=== PATIENT | male | born 1985 | race African-American/Black ===

== ENCOUNTER 2017-09-25 14:13 | Inpatient (IN) | payer SELFPAY ==
[2017-09-25] MEDS ORDERED: ONDANSETRON PF 4 MG/2 ML VIAL. IV (15:00)
[2017-09-25] MEDS: IV NORMAL SALINE 500ML BAG 500 ML IV (15:45)
[2017-09-25 15:59] LABS: BASO % 0 % (0-3); EOS % 0 % (0-3); HEMATOCRIT 39.8 % (39.0-53.0); HEMOGLOBIN 13.5 g/dL (13.0-17.5); LYMPH # 0.7 x10^3/uL (1.0-4.8); LYMPH % 6 % (24-48); MEAN CORPUSCULAR HEMOGLOBIN 33 pg (25-35); MEAN CORPUSCULAR HGB CONC 34 g/dL (31-37); MEAN CORPUSCULAR VOLUME 99 fL (79-100); MONO # 0.5 x10^3/uL (0.0-1.1); MONO % 4 % (0-9); NEUT # 9.8 x10^3uL (1.8-7.7); NEUT % 89 % (31-73); PLATELET COUNT 300 x10^3/uL (140-400); RED BLOOD COUNT 4.04 x10^6/uL (4.30-5.70); WHITE BLOOD COUNT 11.1 x10^3/uL (4.0-11.0)
[2017-09-25 16:04] LABS: ADD MAN DIFF? YES
[2017-09-25 16:11] LABS: ANION GAP 10 (6-14); BLOOD UREA NITROGEN 16 mg/dL (8-26); BUN/CREATININE RATIO 13 (6-20); CALCIUM 8.9 mg/dL (8.5-10.1); CARBON DIOXIDE 28 mmol/L (21-32); CHLORIDE 106 mmol/L (98-107); CREATININE 1.2 mg/dL (0.7-1.3); GFR 85.4; GLUCOSE 118 mg/dL (70-99); POTASSIUM 3.4 mmol/L (3.5-5.1); SODIUM 144 mmol/L (136-145)
[2017-09-25] MEDS: PROMETHAZINE IM 25 MG/ML VIAL IM (16:12)
[2017-09-25 16:17] LABS: ALBUMIN 4.2 g/dL (3.4-5.0); ALBUMIN/GLOBULIN RATIO 1.1 (1.0-1.7); ALK PHOS 66 U/L (46-116); ALT (SGPT) 77 U/L (16-63); AMYLASE 58 U/L (25-115); AST (SGOT) 31 U/L (15-37); LIPASE 99 U/L (73-393); TOTAL BILIRUBIN 0.4 mg/dL (0.2-1.0); TOTAL PROTEIN 7.9 g/dL (6.4-8.2)
[2017-09-25 17:09] LABS: % LYMPHS 11 % (24-48); % MONOS 3 % (0-10); % SEGS 86 % (35-66)
[2017-09-25 17:25] LABS: PLT ESTIMATE ADEQUATE (ADEQUATE)
[2017-09-25] MEDS: PANTOPRAZOLE IV PUSH 40 MG VIAL. IVP (18:12)
[2017-09-25] MEDS: IV NORMAL SALINE 1000ML BAG 1,000 ML IV (18:12)
[2017-09-26 06:31] LABS: ADD MAN DIFF? NO
[2017-09-26 06:38] LABS: BASO # 0.1 x10^3/uL (0.0-0.2); BASO % 1 % (0-3); EOS # 0.2 x10^3/uL (0.0-0.7); EOS % 1 % (0-3); HEMATOCRIT 39.2 % (39.0-53.0); HEMOGLOBIN 13.1 g/dL (13.0-17.5); LYMPH # 2.5 x10^3/uL (1.0-4.8); LYMPH % 23 % (24-48); MEAN CORPUSCULAR HEMOGLOBIN 33 pg (25-35); MEAN CORPUSCULAR HGB CONC 34 g/dL (31-37); MEAN CORPUSCULAR VOLUME 99 fL (79-100); MONO # 0.9 x10^3/uL (0.0-1.1); MONO % 8 % (0-9); NEUT # 7.3 x10^3uL (1.8-7.7); NEUT % 67 % (31-73); PLATELET COUNT 293 x10^3/uL (140-400); RED BLOOD COUNT 3.96 x10^6/uL (4.30-5.70); RED CELL DISTRIBUTION WIDTH 12.6 % (11.5-14.5)
[2017-09-26 06:48] LABS: ANION GAP 5 (6-14); BLOOD UREA NITROGEN 18 mg/dL (8-26); CALCIUM 8.1 mg/dL (8.5-10.1); CARBON DIOXIDE 30 mmol/L (21-32); CHLORIDE 109 mmol/L (98-107); CREATININE 1.2 mg/dL (0.7-1.3); GFR 85.4; GLUCOSE 95 mg/dL (70-99); POTASSIUM 3.7 mmol/L (3.5-5.1); SODIUM 144 mmol/L (136-145)
[2017-09-26] MEDS: PANTOPRAZOLE IV PUSH 40 MG VIAL. IVP (09:15)
[2017-09-26 10:15] LABS: BARBITURATES NEG (NEG); BENZODIAZEPINES NEG (NEG); CANNABINOIDS POS (NEG); COCAINE NEG (NEG); METHADONE NEG (NEG); OPIATES NEG (NEG); PHENCYCLIDINE NEG (NEG)
[2017-09-26 10:21] LABS: AMPHETAMINE/METHAMPHETAMINE NEG (NEG); ETHANOL, URINE NEG (NEG)
[2017-09-27] MEDS ORDERED: PANTOPRAZOLE 40 MG TABLET.DR. PO (07:30)
== END 2017-09-26 15:30 | disposition home or self-care (01) | DRG 392 ==
LOC: 5 SOUTH 14:13
DX: A08.4 Viral intestinal infection, unspecified (principal); J45.909 Unspecified asthma, uncomplicated; K21.9 Gastro-esophageal reflux disease without esophagitis; F12.90 Cannabis use, unspecified, uncomplicated
CPT/HCPCS: 36415; 74018; 80048; 80053; 80307; 82150; 83690; 85007; 85025; C9113; J2550; J7030

== ENCOUNTER 2018-08-29 12:14 | Emergency (ER) | payer OTHER ==
[~2018-08-29] VITALS: Ht 177.8 cm; Wt 106.6 kg
[~2018-08-29 12:14] MED LIST: PANT40GR PO; PROM25AM6 PO; PROM25TA10 PO; RANI150T2 PO
[2018-08-29] MEDS ORDERED: IV NORMAL SALINE 1000ML BAG 1,000 ML IV ONE ×2 (12:30→14:30)
[2018-08-29] MEDS ORDERED: ONDANSETRON PF 4 MG/2 ML VIAL. IV ONE ×2 (12:30→16:15)
[2018-08-29] MEDS ORDERED: DICYCLOMINE 20 MG/2 ML AMPUL. IM ONE (13:15)
[2018-08-29 13:17] LABS: BASO # 0.1 x10^3/uL (0.0-0.2); BASO % 1 % (0-3); EOS # 0.1 x10^3/uL (0.0-0.7); EOS % 1 % (0-3); HEMATOCRIT 43.3 % (39.0-53.0); HEMOGLOBIN 14.6 g/dL (13.0-17.5); LYMPH # 1.1 x10^3/uL (1.0-4.8); LYMPH % 9 % (24-48); MEAN CORPUSCULAR HEMOGLOBIN 33 pg (25-35); MEAN CORPUSCULAR HGB CONC 34 g/dL (31-37); MEAN CORPUSCULAR VOLUME 98 fL (79-100); MONO # 0.4 x10^3/uL (0.0-1.1); MONO % 3 % (0-9); NEUT # 10.7 x10^3uL (1.8-7.7); NEUT % 87 % (31-73); PLATELET COUNT 335 x10^3/uL (140-400); RED BLOOD COUNT 4.44 x10^6/uL (4.30-5.70); RED CELL DISTRIBUTION WIDTH 12.8 % (11.5-14.5); WHITE BLOOD COUNT 12.3 x10^3/uL (4.0-11.0)
[2018-08-29 13:28] LABS: CALCIUM 9.3 mg/dL (8.5-10.1); CREATININE 1.4 mg/dL (0.7-1.3); GFR 71.1; POTASSIUM 3.9 mmol/L (3.5-5.1)
[2018-08-29 13:34] LABS: ALBUMIN 4.3 g/dL (3.4-5.0); ALBUMIN/GLOBULIN RATIO 1.2 (1.0-1.7); MAGNESIUM 1.9 mg/dL (1.8-2.4); TOTAL BILIRUBIN 0.2 mg/dL (0.2-1.0)
[2018-08-29 14:24] LABS: % BANDS 3 % (0-9); % SEGS 85 % (35-66); PLT ESTIMATE ADEQUATE (ADEQUATE)
[2018-08-29 14:25] LABS: % LYMPHS 11 % (24-48); % MONOS 1 % (0-10)
--- NOTE | 2018-08-29 14:26 | PHYS DOC ---
Past Medical History Past Medical History: Asthma, GERD, IBS Past Surgical History: No Surgical History Alcohol Use: Rarely Drug Use: None Adult General Chief Complaint Chief Complaint: NAUSEA/VOMITING/DIARRHA HPI HPI Patient is a 32 year old [f__sex] who presents with [] Review of Systems Review of Systems Constitutional: Denies fever or chills [] Eyes: Denies change in visual acuity, redness, or eye pain [] HENT: Denies nasal congestion or sore throat [] Respiratory: Denies cough or shortness of breath [] Cardiovascular: No additional information not addressed in HPI [] GI: Denies abdominal pain, nausea, vomiting, bloody stools or diarrhea [] : Denies dysuria or hematuria [] Musculoskeletal: Denies back pain or joint pain [] Integument: Denies rash or skin lesions [] Neurologic: Denies headache, focal weakness or sensory changes [] Endocrine: Denies polyuria or polydipsia [] All other systems were reviewed and found to be within normal limits, except as documented in this note. Current Medications Current Medications Current Medications Medications (Trade) Dose Ordered Sig/Emy Start Time Stop Time Status Last Admin Dose Admin Dicyclomine HCl (Bentyl) 20 mg 1X ONCE 08/29/18 13:15 08/29/18 13:18 DC 08/29/18 13:25 20 MG Fentanyl Citrate (Fentanyl 2ml Vial) 100 mcg STK-MED ONCE 08/29/18 14:27 08/29/18 14:28 DC Metoclopramide HCl (Reglan Vial) 10 mg STK-MED ONCE 08/29/18 14:27 08/29/18 14:28 DC Ondansetron HCl (Zofran) 4 mg 1X ONCE 08/29/18 16:15 08/29/18 16:16 DC 08/29/18 16:39 4 MG Sodium Chloride 1,000 ml @ 1,000 mls/hr 1X ONCE 08/29/18 14:30 08/29/18 15:29 DC 08/29/18 14:32 1,000 MLS/HR Allergies Allergies Allergies Coded Allergies Type Severity Reaction Last Updated Verified naproxen Allergy Intermediate 09/25/17 Yes Physical Exam Physical Exam Constitutional: Well developed, well nourished, no acute distress, non-toxic appearance. [] HENT: Normocephalic, atraumatic, bilateral external ears normal, oropharynx moist, no oral exudates, nose normal. [] Eyes: PERRLA, EOMI, conjunctiva normal, no discharge. [] Neck: Normal range of motion, no tenderness, supple, no stridor. [] Cardiovascular:Heart rate regular rhythm, no murmur [] Lungs & Thorax: Bilateral breath sounds clear to auscultation [] Abdomen: Bowel sounds normal, soft, no tenderness, no masses, no pulsatile masses. [] Skin: Warm, dry, no erythema, no rash. [] Back: No tenderness, no CVA tenderness. [] Extremities: No tenderness, no cyanosis, no clubbing, ROM intact, no edema. [] Neurologic: Alert and oriented X 3, normal motor function, normal sensory function, no focal deficits noted. [] Psychologic: Affect normal, judgement normal, mood normal. [] Current Patient Data Vital Signs Vital Signs Date Time Temp Pulse Resp B/P (MAP) Pulse Ox O2 Delivery O2 Flow Rate FiO2 08/29/18 14:31 18 100 Room Air 08/29/18 13:56 60 141/77 (98) 08/29/18 12:25 97.5 97.5 Lab Values Laboratory Tests Test 08/29/18 13:10 08/29/18 15:19 White Blood Count 12.3 x10^3/uL (4.0-11.0) H Red Blood Count 4.44 x10^6/uL (4.30-5.70) Hemoglobin 14.6 g/dL (13.0-17.5) Hematocrit 43.3 % (39.0-53.0) Mean Corpuscular Volume 98 fL (79-100) Mean Corpuscular Hemoglobin 33 pg (25-35) Mean Corpuscular Hemoglobin Concent 34 g/dL (31-37) Red Cell Distribution Width 12.8 % (11.5-14.5) Platelet Count 335 x10^3/uL (140-400) Neutrophils (%) (Auto) 87 % (31-73) H Lymphocytes (%) (Auto) 9 % (24-48) L Monocytes (%) (Auto) 3 % (0-9) Eosinophils (%) (Auto) 1 % (0-3) Basophils (%) (Auto) 1 % (0-3) Neutrophils # (Auto) 10.7 x10^3uL (1.8-7.7) H Lymphocytes # (Auto) 1.1 x10^3/uL (1.0-4.8) Monocytes # (Auto) 0.4 x10^3/uL (0.0-1.1) Eosinophils # (Auto) 0.1 x10^3/uL (0.0-0.7) Basophils # (Auto) 0.1 x10^3/uL (0.0-0.2) Segmented Neutrophils % 85 % (35-66) H Band Neutrophils % 3 % (0-9) Lymphocytes % 11 % (24-48) L Monocytes % 1 % (0-10) Platelet Estimate Adequate (ADEQUATE) Sodium Level 142 mmol/L (136-145) Potassium Level 3.9 mmol/L (3.5-5.1) Chloride Level 106 mmol/L (98-107) Carbon Dioxide Level 25 mmol/L (21-32) Anion Gap 11 (6-14) Blood Urea Nitrogen 18 mg/dL (8-26) Creatinine 1.4 mg/dL (0.7-1.3) H Estimated GFR (Cockcroft-Gault) 71.1 BUN/Creatinine Ratio 13 (6-20) Glucose Level 144 mg/dL (70-99) H Calcium Level 9.3 mg/dL (8.5-10.1) Magnesium Level 1.9 mg/dL (1.8-2.4) Total Bilirubin 0.2 mg/dL (0.2-1.0) Aspartate Amino Transferase (AST) 21 U/L (15-37) Alanine Aminotransferase (ALT) 47 U/L (16-63) Alkaline Phosphatase 76 U/L (46-116) Total Protein 8.0 g/dL (6.4-8.2) Albumin 4.3 g/dL (3.4-5.0) Albumin/Globulin Ratio 1.2 (1.0-1.7) Lipase 216 U/L (73-393) Ethyl Alcohol Level < 10 mg/dL (0-10) Urine Collection Type Unknown Urine Color Yellow Urine Clarity Cloudy Urine pH 7.5 Urine Specific [place] 1.025 Urine Protein Negative mg/dL (NEG-TRACE) Urine Glucose (UA) Negative mg/dL (NEG) Urine Ketones (Stick) Negative mg/dL (NEG) Urine Blood Negative (NEG) Urine Nitrite Negative (NEG) Urine Bilirubin Negative (NEG) Urine Urobilinogen Dipstick 0.2 mg/dL (0.2 mg/dL) Urine Leukocyte Esterase Negative (NEG) Urine RBC 0 /HPF (0-2) Urine WBC 1-4 /HPF (0-4) Urine Bacteria 0 /HPF (0-FEW) Urine Mucus Marked /LPF Urine Opiates Screen Neg (NEG) Urine Methadone Screen Neg (NEG) Urine Barbiturates Neg (NEG) Urine Phencyclidine Screen Neg (NEG) Urine Amphetamine/Methamphetamine Neg (NEG) Urine Benzodiazepines Screen Neg (NEG) Urine Cocaine Screen Neg (NEG) Urine Cannabinoids Screen Pos (NEG) Urine Ethyl Alcohol Neg (NEG) Laboratory Tests 08/29/18 13:10 Laboratory Tests 08/29/18 13:10 EKG EKG [] Radiology/Procedures Radiology/Procedures [] Course & Med Decision Making Course & Med Decision Making Pertinent Labs and Imaging studies reviewed. (See chart for details) 1420: Reevaluation patient reports some improvement in symptoms. He has had no active vomiting or diarrhea while in the ER. We'll provide patient with additional fluids and medications and reevaluate. Test results were discussed with him with at bedside. 1545: Evaluation patient reports he has had improved symptoms. Patient has had no active vomiting while in the ER. Vital signs are stable. Discussed test results again with patient. Discussed plans for home discharge with patient to follow-up with his primary care physician if symptoms persist and with concerns. We'll provide prescriptions for Zofran and dicyclomine.Education provided on signs and symptoms to return to ER. Discharge instructions were discussed. Dragon Disclaimer Dragon Disclaimer This electronic medical record was generated, in whole or in part, using a voice recognition dictation system. Departure Departure Impression: Primary Impression: Abdominal pain Additional Impressions: Nausea & vomiting Diarrhea Disposition: HOME, SELF-CARE Condition: STABLE Referrals: UNKNOWN PCP NAME (PCP) Patient Instructions: Abdominal Pain, Diarrhea, Nausea and Vomiting Additional Instructions: Drink plenty of fluids- slowly advanced diet as tolerated. Follow-up with a gastrointestinal doctor and/or your primary care physician for reevaluation and further care if symptoms persist and with concerns. Scripts Dicyclomine Hcl (DICYCLOMINE HCL) 10 Mg Capsule 1 CAP PO PRN Q6HRS PRN for NAUSEA, #10 CAP 0 Refills Prov: UBALDO WILBURN APRN 08/29/18 Ondansetron (ONDANSETRON ODT) 4 Mg Tab.rapdis 1 TAB PO PRN Q6-8HRS PRN for NAUSEA, #10 TAB 0 Refills Prov: UBALDO WILBURN APRN 08/29/18 Problem Qualifiers UBALDO WILBURN APRN Aug 29, 2018 14:26
[2018-08-29] MEDS ORDERED: fentaNYL PF VIAL 100 MCG/2 ML VIAL ONE (14:27)
[2018-08-29] MEDS ORDERED: METOCLOPRAMIDE HCL 10 MG/2 ML VIAL. ONE (14:27)
[2018-08-29] MEDS ORDERED: METOCLOPRAMIDE HCL 10 MG/2 ML VIAL. IV ONE (14:30)
[2018-08-29] MEDS ORDERED: fentaNYL PF VIAL 100 MCG/2 ML VIAL IV ONE (14:30)
[2018-08-29 15:24] LABS: BILIRUBIN,URINE NEGATIVE (NEG); CLARITY,URINE CLOUDY; COLOR,URINE YELLOW; NITRITE,URINE NEGATIVE (NEG); PH,URINE 7.5; PROTEIN,URINE NEGATIVE (NEG-TRACE); UROBILINOGEN,URINE 0.2 mg/dL (0.2 mg/dL)
[2018-08-29 15:30] LABS: BACTERIA,URINE 0 /HPF (0-FEW); RBC,URINE 0 /HPF (0-2)
[2018-08-29 15:32] LABS: BARBITURATES NEG (NEG); BENZODIAZEPINES NEG (NEG); CANNABINOIDS POS (NEG); COCAINE NEG (NEG); METHADONE NEG (NEG); OPIATES NEG (NEG); PHENCYCLIDINE NEG (NEG)
[2018-08-29 15:38] LABS: AMPHETAMINE/METHAMPHETAMINE NEG (NEG)
--- NOTE | 2018-08-29 16:35 | RAD ---
Acute abdomen series with chest, 6 08/29/2017: HISTORY: Abdominal pain, nausea and vomiting There is a paucity of gas in the GI tract. No dilated bowel loops are seen. No free air is seen in the abdomen. There is no evidence of organomegaly or abnormal abdominal calcification. A sclerotic focus projected over the left iliac bone near the sacroiliac joint is probably a bone island. The heart size is normal. The lungs are clear. There is no evidence of pleural fluid. IMPRESSION: No acute abdominal abnormality is detected. Electronically signed by: Josse Muller MD (08/29/2018 4:32 PM) [facility]
[2018-08-29] MEDS ORDERED: DICY10CA3 PO (16:55)
[2018-08-29] MEDS ORDERED: ONDA4TAB12 PO (16:55)
[2018-08-29 17:06] VITALS: BP 115/70
== END 2018-08-29 17:11 | disposition home or self-care (01) ==
LOC: ER 12:14
DX: R10.84 Generalized abdominal pain (principal); R11.2 Nausea with vomiting, unspecified; R19.7 Diarrhea, unspecified; K21.9 Gastro-esophageal reflux disease without esophagitis; J45.909 Unspecified asthma, uncomplicated
CPT/HCPCS: 36415; 74022; 80053; 80307; 81001; 83690; 83735; 85007; 85025; 96361; 96372; 96374; 96375; 96376; 99285; G0480; J0500; J2405; J2765; J3010; J7030

== ENCOUNTER 2018-12-24 09:31 | Inpatient (IN) | payer OTHER ==
[~2018-12-24] VITALS: Ht 177.8 cm; Wt 108.9 kg
[~2018-12-24 09:31] MED LIST changes: +DICY10CA3 PO; +ONDA4TAB12 PO
[2018-12-24] MEDS ORDERED: IV NORMAL SALINE 1000ML BAG 1,000 ML IV SCH (09:54)
[2018-12-24] MEDS ORDERED: fentaNYL PF VIAL 100 MCG/2 ML VIAL IV ONE (10:00)
[2018-12-24] MEDS ORDERED: ONDANSETRON PF 4 MG/2 ML VIAL. IV ONE ×2 (10:00→13:00)
[2018-12-24] MEDS ORDERED: FAMOTIDINE 20 MG/2 ML VIAL IVP ONE (10:00)
--- NOTE | 2018-12-24 10:02 | PHYS DOC ---
Past Medical History Past Medical History: Asthma, GERD, IBS (ARIANA MONDRAGON APRN) Past Surgical History: No Surgical History (ARIANA MONDRAGON APRN) Alcohol Use: Rarely Drug Use: None (ARIANA MONDRAGON APRN) Attending Signature I have participated in the care of this patient and I have reviewed and agree with all pertinent clinical information above including history, exam, and recommendations. (NBA MCKEON MD) Adult General Chief Complaint Chief Complaint: ABDOMINAL PAIN HPI HPI Patient is a 33 year old male who presents with [facility] last night at 2100 and is to 3:00 this morning began vomiting. Patient complains of 8/10 aching lower abdominal pain. (ARIANA MONDRAGON APRN) Review of Systems Review of Systems GI: abdominal pain, nausea, vomiting, denies bloody stools or diarrhea [] All other systems were reviewed and found to be within normal limits, except as documented in this note. (ARIANA MONDRAGON APRN) Current Medications Current Medications Current Medications Medications (Trade) Dose Ordered Sig/Emy Start Time Stop Time Status Last Admin Dose Admin Famotidine (Pepcid Vial) 20 mg 1X ONCE 12/24/18 10:00 12/24/18 10:07 DC 12/24/18 10:52 20 MG Fentanyl Citrate (Fentanyl 2ml Vial) 50 mcg 1X ONCE 12/24/18 10:00 12/24/18 10:07 DC 12/24/18 10:52 50 MCG Info (CONTRAST GIVEN -- Rx MONITORING) 1 each PRN DAILY PRN 12/24/18 10:15 12/26/18 10:14 Iohexol (Omnipaque 300 Mg/ml) 75 ml 1X ONCE 12/24/18 10:15 12/24/18 10:16 DC 12/24/18 10:15 75 ML Ondansetron HCl (Zofran) 4 mg 1X ONCE 12/24/18 13:00 12/24/18 13:01 DC 12/24/18 12:59 4 MG Sodium Chloride 1,000 ml @ 1,000 mls/hr Q1H 12/24/18 09:54 12/24/18 10:53 DC 12/24/18 10:50 1,000 MLS/HR (ARIANA MONDRAGON APRN) Allergies Allergies Allergies Coded Allergies Type Severity Reaction Last Updated Verified naproxen Allergy Intermediate 09/25/17 Yes (ARIANA MONDRAGON Joan MAP COMPILER) Physical Exam Physical Exam Constitutional: Well developed, well nourished, no acute distress, non-toxic appearance. [] HENT: Normocephalic, atraumatic, bilateral external ears normal, oropharynx moist, no oral exudates, nose normal. [] Eyes: PERRLA, EOMI, conjunctiva normal, no discharge. [] Cardiovascular:Heart rate regular rhythm, no murmur [] Lungs & Thorax: Bilateral breath sounds clear to auscultation [] Abdomen: Bowel sounds normal, soft, umbilical tenderness, no masses, no pulsatile masses. [] Skin: Warm, diaphoretic, no erythema, no rash. [] Back: No tenderness, no CVA tenderness. [] Extremities: No tenderness, no cyanosis, no clubbing, ROM intact, no edema. [] Neurologic: Alert and oriented X 3, normal motor function, normal sensory function, no focal deficits noted. [] Psychologic: Affect normal, judgement normal, mood normal. [] (ARIANA MONDRAGON MAP COMPILER) Current Patient Data Vital Signs Vital Signs Date Time Temp Pulse Resp B/P (MAP) Pulse Ox O2 Delivery O2 Flow Rate FiO2 12/24/18 11:22 17 96 Room Air 12/24/18 10:59 70 117/60 (79) 12/24/18 09:42 97.9 97.9 Lab Values Laboratory Tests Test 12/24/18 10:40 12/24/18 13:00 White Blood Count 12.7 x10^3/uL (4.0-11.0) H Red Blood Count 4.04 x10^6/uL (4.30-5.70) L Hemoglobin 13.5 g/dL (13.0-17.5) Hematocrit 40.2 % (39.0-53.0) Mean Corpuscular Volume 100 fL (79-100) Mean Corpuscular Hemoglobin 33 pg (25-35) Mean Corpuscular Hemoglobin Concent 34 g/dL (31-37) Red Cell Distribution Width 13.3 % (11.5-14.5) Platelet Count 334 x10^3/uL (140-400) Neutrophils (%) (Auto) 88 % (31-73) H Lymphocytes (%) (Auto) 9 % (24-48) L Monocytes (%) (Auto) 2 % (0-9) Eosinophils (%) (Auto) 0 % (0-3) Basophils (%) (Auto) 1 % (0-3) Neutrophils # (Auto) 11.2 x10^3/uL (1.8-7.7) H Lymphocytes # (Auto) 1.1 x10^3/uL (1.0-4.8) Monocytes # (Auto) 0.3 x10^3/uL (0.0-1.1) Eosinophils # (Auto) 0.0 x10^3/uL (0.0-0.7) Basophils # (Auto) 0.1 x10^3/uL (0.0-0.2) Segmented Neutrophils % 85 % (35-66) H Band Neutrophils % 3 % (0-9) Lymphocytes % 10 % (24-48) L Monocytes % 2 % (0-10) Platelet Estimate Adequate (ADEQUATE) Ovalocytes Few Sodium Level 145 mmol/L (136-145) Potassium Level 3.5 mmol/L (3.5-5.1) Chloride Level 109 mmol/L (98-107) H Carbon Dioxide Level 28 mmol/L (21-32) Anion Gap 8 (6-14) Blood Urea Nitrogen 17 mg/dL (8-26) Creatinine 1.3 mg/dL (0.7-1.3) Estimated GFR (Cockcroft-Gault) 76.9 BUN/Creatinine Ratio 13 (6-20) Glucose Level 138 mg/dL (70-99) H Calcium Level 9.2 mg/dL (8.5-10.1) Total Bilirubin 0.3 mg/dL (0.2-1.0) Aspartate Amino Transferase (AST) 16 U/L (15-37) Alanine Aminotransferase (ALT) 29 U/L (16-63) Alkaline Phosphatase 71 U/L (46-116) Total Protein 7.8 g/dL (6.4-8.2) Albumin 4.2 g/dL (3.4-5.0) Albumin/Globulin Ratio 1.2 (1.0-1.7) Lipase 172 U/L (73-393) Urine Collection Type Unknown Urine Color Yellow Urine Clarity Cloudy Urine pH 8.0 Urine Specific [place] >=1.030 Urine Protein Negative mg/dL (NEG-TRACE) Urine Glucose (UA) Negative mg/dL (NEG) Urine Ketones (Stick) Negative mg/dL (NEG) Urine Blood Negative (NEG) Urine Nitrite Negative (NEG) Urine Bilirubin Negative (NEG) Urine Urobilinogen Dipstick 0.2 mg/dL (0.2 mg/dL) Urine Leukocyte Esterase Negative (NEG) Urine RBC Occ /HPF (0-2) Urine WBC Occ /HPF (0-4) Urine Squamous Epithelial Cells Few /LPF Urine Amorphous Sediment Present /HPF Urine Bacteria 0 /HPF (0-FEW) Urine Mucus Mod /LPF Urine Opiates Screen Neg (NEG) Urine Methadone Screen Neg (NEG) Urine Barbiturates Neg (NEG) Urine Phencyclidine Screen Neg (NEG) Urine Amphetamine/Methamphetamine Neg (NEG) Urine Benzodiazepines Screen Neg (NEG) Urine Cocaine Screen Neg (NEG) Urine Cannabinoids Screen Pos (NEG) Urine Ethyl Alcohol Neg (NEG) Laboratory Tests 12/24/18 10:40 Laboratory Tests 12/24/18 10:40 (ARIANA MONDRAGON APRN) EKG EKG [] (ARIANA MONDRAGON APRN) Radiology/Procedures Radiology/Procedures [] Impressions: [facility] [address], [place] [id number] IMAGING REPORT Signed PATIENT: JARAD PEREZOUNT: [id number] : 1985 LOCATION: ER AGE: 33 SEX: M EXAM STATUS: REG ER ORD. PHYSICIAN: ARIANA MONDRAGON APRN REASON: abd pain, vomting PROCEDURE: CT ABD PELV W/ IV CONTRST ONLY CT ABD PELV W/ IV CONTRST ONLY Indication: Abdominal pain, vomiting Technique: Postcontrast CT imaging was performed of the abdomen pelvis, multiplanar reconstruction images submitted. No oral contrast was given. One or more of the following individualized dose reduction techniques were utilized for this examination: 1. Automated exposure control 2. Adjustment of the mA and/or kV according to patient size 3. Use of iterative reconstruction technique. Comparison: None Findings: There is no abnormality of the limited visualized lung bases. No focal abnormality is identified of the pancreas, liver, spleen. There is no adrenal nodularity. Both kidneys enhance, no hydronephrosis. Gallbladder is present without obvious intraluminal abnormality abnormality by CT. Accurate evaluation of bowel is limited without oral contrast. Normal caliber appendix is visualized without adjacent inflammatory change. Bowel is not significantly dilated. There is no free air or free fluid. There is appearance of long segment wall thickening of the descending and transverse colon and questionably minimally of the descending colon not associated with significant adjacent inflammatory change. There is nonspecific focus of sclerosis of the left iliac bone about 0.8 cm, may be a bone island. IMPRESSION: 1. There is appearance of long segment colonic wall thickening ascending through transverse colon and questionably minimally of the descending colon as could be seen with colitis in the appropriate clinical setting, limited evaluation of bowel without oral contrast. There is no CT evidence of acute appendicitis. Electronically signed by: Jenny Stevens MD (12/24/2018 11:40 AM) [id number] DICTATED and SIGNED BY: JENNY STEVENS MD DATE: 12/24/18 1140 (ARIANA MONDRAGON APRN) Course & Med Decision Making Course & Med Decision Making Patient has a history of colitis, gastroenteritis, IBS, asthma, GERD. Patient states he takes Protonix daily. Abdomen is soft but tender at umbilicus. Denies blood in his vomit or stool. Skin is moist, pink and warm. Denies dysuria, chest pain, headache, dizziness, numbness or tingling, visual changes, weakness, back pain. Mucus membranes are moist. Alert and Oriented. Speaks in full clear sentences. Ambulatory with a steady gait. PERRLA. CT ABD PELV 1. There is appearance of long segment colonic wall thickening ascending through transverse colon and questionably minimally of the descending colon as could be seen with colitis in the appropriate clinical setting, limited evaluation of bowel without oral contrast. There is no CT evidence of acute appendicitis. Patient is admitted to Dr Bee (ARIANA MONDRAGON APRN) Viniciuson Disclaimer Dragon Disclaimer This electronic medical record was generated, in whole or in part, using a voice recognition dictation system. (ARIANA MONDRAGON APRN) Departure Departure Impression: Primary Impression: Colitis Disposition: 09 ADMITTED INPATIENT Admitting Physician: Debbie Bee (ARIANA MONDRAGON APRN) Condition: STABLE Referrals: DEBBIE BEE MD (PCP) ARIANA MONDRAGON APRN Dec 24, 2018 10:02 NBA MCKEON MD Dec 26, 2018 18:08
[2018-12-24] MEDS ORDERED: IOHEXOL 300 MG/ML 100ML VIAL. IV ONE (10:15)
[2018-12-24] MEDS ORDERED: CONTRAST GIVEN. MC PRN (10:15)
[2018-12-24 10:48] LABS: BASO # 0.1 x10^3/uL (0.0-0.2); BASO % 1 % (0-3); EOS % 0 % (0-3); HEMATOCRIT 40.2 % (39.0-53.0); HEMOGLOBIN 13.5 g/dL (13.0-17.5); LYMPH # 1.1 x10^3/uL (1.0-4.8); LYMPH % 9 % (24-48); MEAN CORPUSCULAR HEMOGLOBIN 33 pg (25-35); MEAN CORPUSCULAR HGB CONC 34 g/dL (31-37); MEAN CORPUSCULAR VOLUME 100 fL (79-100); MONO # 0.3 x10^3/uL (0.0-1.1); MONO % 2 % (0-9); NEUT # 11.2 x10^3/uL (1.8-7.7); NEUT % 88 % (31-73); PLATELET COUNT 334 x10^3/uL (140-400); RED BLOOD COUNT 4.04 x10^6/uL (4.30-5.70); RED CELL DISTRIBUTION WIDTH 13.3 % (11.5-14.5); WHITE BLOOD COUNT 12.7 x10^3/uL (4.0-11.0)
[2018-12-24 11:13] LABS: CALCIUM 9.2 mg/dL (8.5-10.1); CREATININE 1.3 mg/dL (0.7-1.3); GFR 76.9; POTASSIUM 3.5 mmol/L (3.5-5.1)
[2018-12-24 11:19] LABS: ALBUMIN 4.2 g/dL (3.4-5.0); ALBUMIN/GLOBULIN RATIO 1.2 (1.0-1.7); TOTAL BILIRUBIN 0.3 mg/dL (0.2-1.0); TOTAL PROTEIN 7.8 g/dL (6.4-8.2)
[2018-12-24 11:20] LABS: % BANDS 3 % (0-9); % LYMPHS 10 % (24-48); % MONOS 2 % (0-10); % SEGS 85 % (35-66); OVALOCYTES FEW; PLT ESTIMATE ADEQUATE (ADEQUATE)
--- NOTE | 2018-12-24 11:43 | RAD ---
CT ABD PELV W/ IV CONTRST ONLY Indication: Abdominal pain, vomiting Technique: Postcontrast CT imaging was performed of the abdomen pelvis, multiplanar reconstruction images submitted. No oral contrast was given. One or more of the following individualized dose reduction techniques were utilized for this examination: 1. Automated exposure control 2. Adjustment of the mA and/or kV according to patient size 3. Use of iterative reconstruction technique. Comparison: None Findings: There is no abnormality of the limited visualized lung bases. No focal abnormality is identified of the pancreas, liver, spleen. There is no adrenal nodularity. Both kidneys enhance, no hydronephrosis. Gallbladder is present without obvious intraluminal abnormality abnormality by CT. Accurate evaluation of bowel is limited without oral contrast. Normal caliber appendix is visualized without adjacent inflammatory change. Bowel is not significantly dilated. There is no free air or free fluid. There is appearance of long segment wall thickening of the descending and transverse colon and questionably minimally of the descending colon not associated with significant adjacent inflammatory change. There is nonspecific focus of sclerosis of the left iliac bone about 0.8 cm, may be a bone island. IMPRESSION: 1. There is appearance of long segment colonic wall thickening ascending through transverse colon and questionably minimally of the descending colon as could be seen with colitis in the appropriate clinical setting, limited evaluation of bowel without oral contrast. There is no CT evidence of acute appendicitis. Electronically signed by: Zion Brito MD (12/24/2018 11:40 AM) [id number]
[2018-12-24 13:11] LABS: BILIRUBIN,URINE NEGATIVE (NEG); CLARITY,URINE CLOUDY; COLOR,URINE YELLOW; NITRITE,URINE NEGATIVE (NEG); PROTEIN,URINE NEGATIVE (NEG-TRACE); UROBILINOGEN,URINE 0.2 mg/dL (0.2 mg/dL)
[2018-12-24 13:18] LABS: BARBITURATES NEG (NEG); BENZODIAZEPINES NEG (NEG); CANNABINOIDS POS (NEG); COCAINE NEG (NEG); METHADONE NEG (NEG); OPIATES NEG (NEG); PHENCYCLIDINE NEG (NEG)
[2018-12-24 13:20] LABS: AMORPHOUS SEDIMENT,UR PRESENT /HPF; SQUAMOUS EPITHELIAL CELL,UR FEW /LPF
[2018-12-24 13:21] LABS: BACTERIA,URINE 0 /HPF (0-FEW); RBC,URINE OCC /HPF (0-2); WBC,URINE OCC /HPF (0-4)
[2018-12-24 13:22] LABS: AMPHETAMINE/METHAMPHETAMINE NEG (NEG)
[2018-12-24] MEDS ORDERED: ACETAMINOPHEN 325 MG TABLET. PO PRN (13:30)
[2018-12-24] MEDS ORDERED: fentaNYL PF VIAL 100 MCG/2 ML VIAL IV PRN (13:30)
[2018-12-24] MEDS ORDERED: CIPROFLOXACIN 400MG PREMIX 200 ML IV ONE (13:30)
[2018-12-24] MEDS ORDERED: ONDANSETRON PF 4 MG/2 ML VIAL. IV PRN (13:30)
--- NOTE | 2018-12-24 14:38 | PDOC2 ---
GI CONSULT Reason For Consult: Colitis HPI: HPI: 33 y/o male seen in ER. Ill since the middle of the night. Began w/ diarrhea - says no brown stool, only red blood. Associated sweating, sharp/crampy pain around belly button, and vomiting (brown w/ occasional red specks). Symptoms possibly precipitated by eating food from [facility] last night. Also took amoxicillin recently (can't say exactly when) for a sinus infection. H/o recurrent n/v, abd pain, and diarrhea since 2009. We saw him for this in 09/2017 - quickly improved and was discharged the day after admission. He reports previous GI evaluation @ [facility] during admission there in 07/2017. He recalls having CT, EGD, and colonoscopy w/ Dr. Yeh. Reportedly, EGD showed "severe burn" in esophagus and colonoscopy showed "an infection in my intestines." He was treated with IV antibiotics. Usually he has stomach "burning" (not this time). Denies issues w/ bleeding in the past. H/o GERD on either Protonix 40mg or omeprazole daily - no longer takes H2 segundo. No dysphagia, weight loss, or melena. Thinks last episode occurred a couple months ago. He was seen in the ER here in 08/2018 for n/v, abd pain, and diarrhea after eating cheesecake. No GB, liver, pancreas, or PUD history. No previous GES. No NSAIDs. Labs note WBC 12.7, glucose 138, and tox screen + cannabinoids (which was also positive in 08/2018 and 09/2017). Hgb, BUN, LFTs, and lipase are WNL. On CT report: appearance of long segment colonic wall thickening ascending through transverse colon and questionably minimally of the descending colon as could be seen with colitis in the appropriate clinical setting. Started on IV Cipro and metronidazole per ER. D/w ER nurse - no stools since arrival. PMH: PMH: asthma, GERD right hand surgery FH: Family History: Other (father - gallstones) Social History: Smoke: No ALCOHOL: none Drugs: Marijuana (daily) ROS: GEN: +sweats HEENT: Denies blurred vision, sore throat CV: Denies chest pain RESP: Denies shortness of air, cough GI: Per HPI : Denies hematuria, dysuria ENDO: Denies weight changes NEURO: Denies confusion, dizziness MSK: Denies weakness, joint pain/swelling SKIN: Denies jaundice, pruritus Vitals: Vitals: Vital Signs Date Time Temp Pulse Resp B/P (MAP) Pulse Ox O2 Delivery O2 Flow Rate FiO2 12/24/18 13:09 62 13 120/63 (82) 100 Room Air 12/24/18 09:42 97.9 97.9 Labs: Labs: Laboratory Tests Test 12/24/18 10:40 12/24/18 13:00 White Blood Count 12.7 x10^3/uL (4.0-11.0) Red Blood Count 4.04 x10^6/uL (4.30-5.70) Hemoglobin 13.5 g/dL (13.0-17.5) Hematocrit 40.2 % (39.0-53.0) Mean Corpuscular Volume 100 fL (79-100) Mean Corpuscular Hemoglobin 33 pg (25-35) Mean Corpuscular Hemoglobin Concent 34 g/dL (31-37) Red Cell Distribution Width 13.3 % (11.5-14.5) Platelet Count 334 x10^3/uL (140-400) Neutrophils (%) (Auto) 88 % (31-73) Lymphocytes (%) (Auto) 9 % (24-48) Monocytes (%) (Auto) 2 % (0-9) Eosinophils (%) (Auto) 0 % (0-3) Basophils (%) (Auto) 1 % (0-3) Neutrophils # (Auto) 11.2 x10^3/uL (1.8-7.7) Lymphocytes # (Auto) 1.1 x10^3/uL (1.0-4.8) Monocytes # (Auto) 0.3 x10^3/uL (0.0-1.1) Eosinophils # (Auto) 0.0 x10^3/uL (0.0-0.7) Basophils # (Auto) 0.1 x10^3/uL (0.0-0.2) Segmented Neutrophils % 85 % (35-66) Band Neutrophils % 3 % (0-9) Lymphocytes % 10 % (24-48) Monocytes % 2 % (0-10) Platelet Estimate Adequate (ADEQUATE) Ovalocytes Few Sodium Level 145 mmol/L (136-145) Potassium Level 3.5 mmol/L (3.5-5.1) Chloride Level 109 mmol/L (98-107) Carbon Dioxide Level 28 mmol/L (21-32) Anion Gap 8 (6-14) Blood Urea Nitrogen 17 mg/dL (8-26) Creatinine 1.3 mg/dL (0.7-1.3) Estimated GFR (Cockcroft-Gault) 76.9 BUN/Creatinine Ratio 13 (6-20) Glucose Level 138 mg/dL (70-99) Calcium Level 9.2 mg/dL (8.5-10.1) Total Bilirubin 0.3 mg/dL (0.2-1.0) Aspartate Amino Transf (AST/SGOT) 16 U/L (15-37) Alanine Aminotransferase (ALT/SGPT) 29 U/L (16-63) Alkaline Phosphatase 71 U/L (46-116) Total Protein 7.8 g/dL (6.4-8.2) Albumin 4.2 g/dL (3.4-5.0) Albumin/Globulin Ratio 1.2 (1.0-1.7) Lipase 172 U/L (73-393) Urine Collection Type Unknown Urine Color Yellow Urine Clarity Cloudy Urine pH 8.0 Urine Specific [place] >=1.030 Urine Protein Negative mg/dL (NEG-TRACE) Urine Glucose (UA) Negative mg/dL (NEG) Urine Ketones (Stick) Negative mg/dL (NEG) Urine Blood Negative (NEG) Urine Nitrite Negative (NEG) Urine Bilirubin Negative (NEG) Urine Urobilinogen Dipstick 0.2 mg/dL (0.2 mg/dL) Urine Leukocyte Esterase Negative (NEG) Urine RBC Occ /HPF (0-2) Urine WBC Occ /HPF (0-4) Urine Squamous Epithelial Cells Few /LPF Urine Amorphous Sediment Present /HPF Urine Bacteria 0 /HPF (0-FEW) Urine Mucus Mod /LPF Urine Opiates Screen Neg (NEG) Urine Methadone Screen Neg (NEG) Urine Barbiturates Neg (NEG) Urine Phencyclidine Screen Neg (NEG) Urine Amphetamine/Methamphetamine Neg (NEG) Urine Benzodiazepines Screen Neg (NEG) Urine Cocaine Screen Neg (NEG) Urine Cannabinoids Screen Pos (NEG) Urine Ethyl Alcohol Neg (NEG) Allergies: Coded Allergies: naproxen (Verified Allergy, Intermediate, 09/25/17) Medications: Current Medications Medications (Trade) Dose Ordered Sig/Emy Route PRN Reason Start Time Stop Time Status Last Admin Dose Admin Sodium Chloride 1,000 ml @ 1,000 mls/hr Q1H IV 12/24/18 09:54 12/24/18 10:53 DC 12/24/18 10:50 Fentanyl Citrate (Fentanyl 2ml Vial) 50 mcg 1X ONCE IV 12/24/18 10:00 12/24/18 10:07 DC 12/24/18 10:52 Ondansetron HCl (Zofran) 4 mg 1X ONCE IV 12/24/18 10:00 12/24/18 10:07 DC 12/24/18 10:51 Famotidine (Pepcid Vial) 20 mg 1X ONCE IVP 12/24/18 10:00 12/24/18 10:07 DC 12/24/18 10:52 Iohexol (Omnipaque 300 Mg/ml) 75 ml 1X ONCE IV 12/24/18 10:15 12/24/18 10:16 DC 12/24/18 10:15 Ondansetron HCl (Zofran) 4 mg 1X ONCE IV 12/24/18 13:00 12/24/18 13:01 DC 12/24/18 12:59 Metronidazole 100 ml @ 100 mls/hr 1X ONCE IV 12/24/18 13:30 12/24/18 14:29 12/24/18 13:58 Imaging: Imaging: CT A/P w/ IV contrast Findings: There is no abnormality of the limited visualized lung bases. No focal ab normality is identified of the pancreas, liver, spleen. There is no adrenal nodularity. Both kidneys enhance, no hydronephrosis. Gallbladder is present without obvious intraluminal abnormality abnormality by CT. Accurate evaluation of bowel is limited without oral contrast. Normal caliber appendix is visualized without adjacent inflammatory change. Bowel is not significantly dilated. There is no free air or free fluid. There is appearance of long segment wall thickening of the descending and transverse colon and questionably minimally of the descending colon not associated with significant adjacent inflammatory change. There is nonspecific focus of sclerosis of the left iliac bone about 0.8 cm, may be a bone island. IMPRESSION: 1. There is appearance of long segment colonic wall thickening ascending through transverse colon and questionably minimally of the descending colon as could be seen with colitis in the appropriate clinical setting, limited evaluation of bowel without oral contrast. There is no CT evidence of acute appendicitis. PE: GEN: ill - hunched over in bed holding emesis basin HEENT: Atraumatic, PERRL LUNGS: CTAB HEART: RRR ABD: difficult exam because he prefers to remain in sitting position w/ nausea - BS+, soft, periumbilical discomfort w/ less tenderness in upper abdomen EXTREMITY: No edema SKIN: No rashes, no jaundice NEURO/PSYCH: A & O �3 A/P: A/P: Recurrent n/v, abd pain, diarrhea - this time w/ bloody stools Leukocytosis Abnormal CT - possible colitis GERD - on PPI QD CRC screen - reports colonoscopy @ [facility] in 07/2017 +cannabinoids - reports daily use -- Says last name used @ [facility] was Wayne - will attempt to review previous 'scopes. IV acid-linen supervisor. Agree w/ NPO for now. Monitor for bleeding and diarrhea - check stool tests. Will review CT w/ Dr. Sprague. LINDA BRIONES Dec 24, 2018 14:38
[2018-12-24 15:00] VITALS: BP 108/77
[2018-12-24] MEDS: IV NORMAL SALINE 1000ML BAG 1,000 ML IV SCH (15:22)
[2018-12-24] MEDS: PROCHLORPERAZINE 10 MG/2 ML VIAL. IV PRN (17:10)
[2018-12-24] MEDS ORDERED: PANT40TA77 PO (17:53)
[2018-12-24 19:00] VITALS: BP 119/60
[2018-12-24 22:48] VITALS: BP 107/51
[2018-12-25 03:00] VITALS: BP 100/57
[2018-12-25] MEDS: IV NORMAL SALINE 1000ML BAG 1,000 ML IV SCH (04:11)
[2018-12-25] MEDS: PROCHLORPERAZINE 10 MG/2 ML VIAL. IV PRN (04:22)
[2018-12-25 04:55] LABS: BASO # 0.1 x10^3/uL (0.0-0.2); BASO % 0 % (0-3); EOS % 0 % (0-3); HEMATOCRIT 40.2 % (39.0-53.0); HEMOGLOBIN 13.3 g/dL (13.0-17.5); LYMPH # 2.6 x10^3/uL (1.0-4.8); LYMPH % 18 % (24-48); MEAN CORPUSCULAR HEMOGLOBIN 33 pg (25-35); MEAN CORPUSCULAR HGB CONC 33 g/dL (31-37); MEAN CORPUSCULAR VOLUME 99 fL (79-100); MONO # 1.1 x10^3/uL (0.0-1.1); MONO % 8 % (0-9); NEUT # 10.3 x10^3/uL (1.8-7.7); NEUT % 73 % (31-73); PLATELET COUNT 292 x10^3/uL (140-400); RED BLOOD COUNT 4.05 x10^6/uL (4.30-5.70); RED CELL DISTRIBUTION WIDTH 12.9 % (11.5-14.5)
[2018-12-25 05:13] LABS: ALBUMIN 3.8 g/dL (3.4-5.0); ALBUMIN/GLOBULIN RATIO 1.2 (1.0-1.7); CALCIUM 8.8 mg/dL (8.5-10.1); CREATININE 1.3 mg/dL (0.7-1.3); GFR 76.9; POTASSIUM 3.5 mmol/L (3.5-5.1); TOTAL BILIRUBIN 0.5 mg/dL (0.2-1.0); TOTAL PROTEIN 7.1 g/dL (6.4-8.2)
[2018-12-25 07:00] VITALS: BP 97/62
[2018-12-25] MEDS ORDERED: PANTOPRAZOLE IV PUSH 40 MG VIAL. IVP SCH (09:00)
[2018-12-25] MEDS ORDERED: CIPROFLOXACIN 400MG PREMIX 200 ML IV SCH (09:00)
--- NOTE | 2018-12-25 09:48 | PDOC ---
Subjective: Subjective: Feeling better. Vomited "phlegm" overnight - "probably from my asthma." No abd pain. No diarrhea or bleeding. Would like some ice chips and Sprite. Objective: Vital Signs: Vital Signs Date Time Temp Pulse Resp B/P (MAP) Pulse Ox O2 Delivery O2 Flow Rate FiO2 12/25/18 07:00 97.6 66 16 97/62 (74) 100 Room Air 97.6 Labs: Laboratory Tests Test 12/24/18 10:40 12/24/18 13:00 12/25/18 04:00 White Blood Count 12.7 x10^3/uL 14.0 x10^3/uL Red Blood Count 4.04 x10^6/uL 4.05 x10^6/uL Hemoglobin 13.5 g/dL 13.3 g/dL Hematocrit 40.2 % 40.2 % Mean Corpuscular Volume 100 fL 99 fL Mean Corpuscular Hemoglobin 33 pg 33 pg Mean Corpuscular Hemoglobin Concent 34 g/dL 33 g/dL Red Cell Distribution Width 13.3 % 12.9 % Platelet Count 334 x10^3/uL 292 x10^3/uL Neutrophils (%) (Auto) 88 % 73 % Lymphocytes (%) (Auto) 9 % 18 % Monocytes (%) (Auto) 2 % 8 % Eosinophils (%) (Auto) 0 % 0 % Basophils (%) (Auto) 1 % 0 % Neutrophils # (Auto) 11.2 x10^3/uL 10.3 x10^3/uL Lymphocytes # (Auto) 1.1 x10^3/uL 2.6 x10^3/uL Monocytes # (Auto) 0.3 x10^3/uL 1.1 x10^3/uL Eosinophils # (Auto) 0.0 x10^3/uL 0.0 x10^3/uL Basophils # (Auto) 0.1 x10^3/uL 0.1 x10^3/uL Segmented Neutrophils % 85 % Band Neutrophils % 3 % Lymphocytes % 10 % Monocytes % 2 % Platelet Estimate Adequate Ovalocytes Few Sodium Level 145 mmol/L 148 mmol/L Potassium Level 3.5 mmol/L 3.5 mmol/L Chloride Level 109 mmol/L 109 mmol/L Carbon Dioxide Level 28 mmol/L 29 mmol/L Anion Gap 8 10 Blood Urea Nitrogen 17 mg/dL 14 mg/dL Creatinine 1.3 mg/dL 1.3 mg/dL Estimated GFR (Cockcroft-Gault) 76.9 76.9 BUN/Creatinine Ratio 13 11 Glucose Level 138 mg/dL 101 mg/dL Calcium Level 9.2 mg/dL 8.8 mg/dL Total Bilirubin 0.3 mg/dL 0.5 mg/dL Aspartate Amino Transf (AST/SGOT) 16 U/L 21 U/L Alanine Aminotransferase (ALT/SGPT) 29 U/L 25 U/L Alkaline Phosphatase 71 U/L 64 U/L Total Protein 7.8 g/dL 7.1 g/dL Albumin 4.2 g/dL 3.8 g/dL Albumin/Globulin Ratio 1.2 1.2 Lipase 172 U/L Urine Collection Type Unknown Urine Color Yellow Urine Clarity Cloudy Urine pH 8.0 Urine Specific [place] >=1.030 Urine Protein Negative mg/dL Urine Glucose (UA) Negative mg/dL Urine Ketones (Stick) Negative mg/dL Urine Blood Negative Urine Nitrite Negative Urine Bilirubin Negative Urine Urobilinogen Dipstick 0.2 mg/dL Urine Leukocyte Esterase Negative Urine RBC Occ /HPF Urine WBC Occ /HPF Urine Squamous Epithelial Cells Few /LPF Urine Amorphous Sediment Present /HPF Urine Bacteria 0 /HPF Urine Mucus Mod /LPF Urine Opiates Screen Neg Urine Methadone Screen Neg Urine Barbiturates Neg Urine Phencyclidine Screen Neg Urine Amphetamine/Methamphetamine Neg Urine Benzodiazepines Screen Neg Urine Cocaine Screen Neg Urine Cannabinoids Screen Pos Urine Ethyl Alcohol Neg PE: GEN: NAD LUNGS: CTAB HEART: RRR ABD: NABS, S/ND/NT NEURO/PSYCH: A & O �3 A/P: Recurrent n/v, abd pain, diarrhea - resolving, possible colitis on CT Leukocytosis - worse +cannabinoids - reports daily use -- Try clears, ADAT. Continue PPI for h/o GERD - change to PO if tolerates diet. Will review any outside records w/ Dr. Sprague. LINDA BRIONES Dec 25, 2018 09:48
--- NOTE | 2018-12-25 09:57 | PDOC ---
Provider Note Provider Note Pt seen.H&P dictated.#[id number]. ALLIE BEE MD Dec 25, 2018 09:57
--- NOTE | 2018-12-25 10:12 | HP ---
ADMIT DATE: 12/24/2018 REASON FOR ADMISSION TO THE HOSPITAL: Colitis. HISTORY OF PRESENT ILLNESS: The patient is a 33-year-old male patient comes with abdominal pain, nausea, vomiting and had a CT scan shows inflammation of the colon, white count elevated to 12,000 and the patient was admitted to the hospital for IV antibiotics and GI consultation. The patient had seen GI last year, had a colonoscopy last year at [facility] and he had EGD and colonoscopy. PAST MEDICAL HISTORY: Has asthma, GERD. PAST SURGICAL HISTORY: Had a hand surgery. FAMILY HISTORY: Gallbladder disease. SOCIAL HISTORY: Uses marijuana daily. Denies alcohol. REVIEW OF SYMPTOMS: Complains of abdominal pain, nausea, vomiting and some diarrhea and rest of 14 systems was reviewed and negative. PHYSICAL EXAMINATION: VITAL SIGNS: Temperature 97, pulse 78, respirations 20, blood pressure 147/81, saturation 100% on room air. HEENT: Head is atraumatic. Pupils equal. Oral cavity: No congestion. NECK: Supple. Thyroid not enlarged. JVD not elevated. CHEST: Symmetrical. CARDIOVASCULAR: S1, S2. LUNGS: Clear. ABDOMEN: Soft, tender in the right abdomen and no rebound. Bowel sounds present, no mass palpable. EXTERNAL GENITALIA: No [place]. RECTAL: Deferred. EXTREMITIES: No calf tenderness, no edema. Pulses 1+. NEUROLOGIC: Moving all extremities. No focal deficits noted. LABORATORY DATA: Shows a white count 12.7, hemoglobin 13, platelets 334. Electrolytes: Sodium 145, potassium 3.5, chloride 109, bicarb 28. LFTs were normal. Urine negative for infection. Urine drug screen was positive for marijuana. Had a CT scan of the abdomen and pelvis, which shows long segment of colon wall thickening, ascending, transverse colon. FINAL IMPRESSION: Colitis. PLAN: At this time, was admitted to the hospital. Stool culture, GI is consulted. Cipro IV and Flagyl and will try to get the reports from last colonoscopy and biopsy. IV fluids for hydration, Zofran for nausea. ALLIE BEE MD DR: MARIE/chico JOB#: [id number] / [id number]
[2018-12-25 11:00] VITALS: BP 127/78
--- NOTE | 2018-12-25 14:09 | PDOC ---
Provider Note Provider Note Pt feels better ,want to go home.colon 2018 at [facility],sigmoid diverticulosis, rest of colon normal. d/c home today.GI feels he does not need oral antibiotics. ALLIE BEE MD Dec 25, 2018 14:09
[2018-12-25 15:00] VITALS: BP 122/64
--- NOTE | 2018-12-25 15:04 | PDOC ---
Provider Note Provider Note Discharge summary dictated.#[id number] ALLIE BEE MD Dec 25, 2018 15:04
--- NOTE | 2018-12-25 15:44 | NUR ---
Discharge Note: Patient was discharged home with self care. Patients IV was discontinued without any complications per RN. Patient tolerated a GI soft diet. Patients at the bedside at the time of discharge education. Patient was given discharge summary/instructions, follow-ups, and educational material. Patient did not have any further questions or concerns. Patient ambulated to the main entrance accompanied by KENDRA Eric, with all personal belongings, where his was waiting for him to take him home.
--- NOTE | 2018-12-25 18:01 | DS ---
DATE OF DISCHARGE: 12/25/2018 REASON FOR ADMISSION TO THE HOSPITAL: Abdominal pain, colitis. CONSULTATION: Dr. Sprague. PROCEDURES DONE: CT of abdomen and pelvis. HOSPITAL COURSE: The patient is a 33-year-old male with complaints of abdominal pain, nausea, vomiting, diarrhea and was seen in the ER, white count was 13. CT scan shows colitis in the right side of the colon. The patient had a colonoscopy last year at [place] shows some diverticulosis. The patient was started with broad spectrum antibiotics, Cipro and Flagyl, seen by GI. Dr. Sprague's patient was feeling better, was able to tolerate diet, he is anxious to go home and did not have any fever and it was felt that he will need antibiotics, it could be ischemic colitis and will follow in the office in 1 week. The patient does not have any more diarrhea while he was in the hospital. No nausea or vomiting. ALLIE BEE MD DR: MARIE/chico JOB#: [id number] / [id number]
== END 2018-12-25 15:57 | disposition home or self-care (01) | DRG 395 ==
LOC: ER 09:31 → 5 SOUTH 13:30 → ER 14:29
PROVIDERS: ADMIT Internal Medicine; ATTEND Internal Medicine
DX: K55.9 Vascular disorder of intestine, unspecified (principal); K21.9 Gastro-esophageal reflux disease without esophagitis; J45.909 Unspecified asthma, uncomplicated; K58.9 Irritable bowel syndrome, unspecified; F12.90 Cannabis use, unspecified, uncomplicated; K64.9 Unspecified hemorrhoids; K57.90 Diverticulosis of intestine, part unspecified, without perforation or abscess without bleeding; Z88.8 Allergy status to other drugs, medicaments and biological substances
CPT/HCPCS: 36415; 74177; 80053; 80307; 81001; 83690; 85007; 85025; C9113; J0744; J0780; J2405; J3010; J3490; J7030; Q9967; G0378

== ENCOUNTER 2020-01-09 07:04 | Emergency (ER) | payer OTHER ==
[~2020-01-09] VITALS: Ht 177.8 cm; Wt 104.5 kg
[~2020-01-09 07:04] MED LIST changes: +ONDA8TAB9 PO; +PANT20TA2 PO; +PANT40TA77 PO; +SUCR1TAB35 PO
[2020-01-09] MEDS ORDERED: IV NORMAL SALINE 1000ML BAG 1,000 ML IV SCH (07:22)
[2020-01-09] MEDS ORDERED: ONDANSETRON PF 4 MG/2 ML VIAL. IVP ONE (07:30)
[2020-01-09] MEDS ORDERED: DICYCLOMINE 20 MG/2 ML VIAL. IM ONE (07:30)
--- NOTE | 2020-01-09 07:40 | PHYS DOC ---
Past Medical History Past Medical History: Asthma, GERD, IBS, Other Additional Past Medical Histor: COLITIS Past Surgical History: No Surgical History Smoking Status: Never Smoker Alcohol Use: Rarely Drug Use: Marijuana Social History Narrative: DAILY MARIJUANA USE General Adult EDM: Chief Complaint: ABDOMINAL PAIN HPI: HPI: Patient is a 34 year old 34-year-old male presents with 1 week history of diffuse abdominal pain. Patient states the pain is intermittent, nonradiating, crampy and stabbing and located diffusely in his abdomen. Pain is currently a discomfort and mild and severity and is moderate at its maximum. Patient had some nausea vomiting. A week ago patient had some diarrhea. Patient has a history of reflux although this does not feel like that. Patient also has history of colitis. Patient denies any fever or chills but had an episode of sweats yesterday. Review of Systems: Review of Systems: Constitutional: Denies fever or chills. [] Eyes: Denies change in visual acuity. [] HENT: Denies nasal congestion or sore throat. [] Respiratory: Denies cough or shortness of breath. [] Cardiovascular: Denies chest pain or edema. [] GI: Complains of abdominal pain, nausea, vomiting with diarrhea 1 week ago, denies blood in the stool : Denies dysuria. [] Musculoskeletal: Denies back pain or joint pain. [] Integument: Denies rash. [] Neurologic: Denies headache, focal weakness or sensory changes. [] Endocrine: Denies polyuria or polydipsia. [] Lymphatic: Denies swollen glands. [] Psychiatric: Denies depression or anxiety. [] Heart Score: Risk Factors: Risk Factors: DM, Current or recent (<one month) smoker, HTN, HLP, family history of CAD, obesity. Risk Scores: Score 0 - 3: 2.5% MACE over next 6 weeks - Discharge Home Score 4 - 6: 20.3% MACE over next 6 weeks - Admit for Clinical Observation Score 7 - 10: 72.7% MACE over next 6 weeks - Early Invasive Strategies Current Medications: Current Medications Sodium Chloride 1,000 ml @ 1,000 mls/hr Q1H IV Last administered on 01/09/20at 07:46; Start 01/09/20 at 07:22; Stop 01/09/20 at 08:21; Status DC Ondansetron HCl (Zofran) 4 mg 1X ONCE IVP Last administered on 01/09/20at 07:47; Start 01/09/20 at 07:30; Stop 01/09/20 at 07:37; Status DC Dicyclomine HCl (Bentyl) 20 mg 1X ONCE IM Last administered on 01/09/20at 07:47; Start 01/09/20 at 07:30; Stop 01/09/20 at 07:37; Status DC Iohexol (Omnipaque 300 Mg/ml) 100 ml 1X ONCE IV Last administered on 01/09/20at 08:25; Start 01/09/20 at 08:00; Stop 01/09/20 at 08:02; Status DC Info (CONTRAST GIVEN -- Rx MONITORING) 1 each PRN DAILY PRN MC SEE COMMENTS; Start 01/09/20 at 08:15; Stop 01/11/20 at 08:14 Active Scripts Active Zofran (Ondansetron Hcl) 8 Mg Tablet 1 Tab PO Q8HRS 30 Days Carafate (Sucralfate) 1 Gm Tablet 1 Tab PO BID 30 Days Protonix (Pantoprazole Sodium) 20 Mg Tablet.dr 40 Mg PO BID 30 Days Current Medications Medications (Trade) Dose Ordered Sig/Emy Start Time Stop Time Status Last Admin Dose Admin Dicyclomine HCl (Bentyl) 20 mg 1X ONCE 01/09/20 07:30 01/09/20 07:37 DC Ondansetron HCl (Zofran) 4 mg 1X ONCE 01/09/20 07:30 01/09/20 07:37 DC Sodium Chloride 1,000 ml @ 1,000 mls/hr Q1H 01/09/20 07:22 01/09/20 08:21 Allergies: Allergies: Allergies Coded Allergies Type Severity Reaction Last Updated Verified naproxen Allergy Intermediate 09/25/17 Yes Physical Exam: PE: Constitutional: Well developed, well nourished, no acute distress, non-toxic appearance. [] HENT: Normocephalic, atraumatic, bilateral external ears normal, no trismus nose normal. [] Eyes: PERRLA, EOMI, conjunctiva normal, no discharge. [] Neck: Normal range of motion, no tenderness, supple, no stridor. [] Cardiovascular:Heart rate regular rhythm, cap refill is brisk Lungs & Thorax: Bilateral breath sounds clear, no respiratory distress Abdomen:, soft, mild diffuse tenderness without guarding or rebound, no masses, no pulsatile masses. [] Skin: Warm, dry, no erythema, no rash. [] Back: No tenderness, no CVA tenderness. [] Extremities: No tenderness, no cyanosis, no clubbing, ROM intact, no edema. [] Neurologic: Alert and oriented X 3, normal motor function, normal sensory function, no focal deficits noted. [] Psychologic: Affect normal, judgement normal, mood normal. [] Current Patient Data: Labs: Laboratory Tests Test 01/09/20 07:39 White Blood Count 17.1 x10^3/uL Red Blood Count 4.43 x10^6/uL Hemoglobin 14.7 g/dL Hematocrit 42.9 % Mean Corpuscular Volume 97 fL Mean Corpuscular Hemoglobin 33 pg Mean Corpuscular Hemoglobin Concent 34 g/dL Red Cell Distribution Width 13.3 % Platelet Count 370 x10^3/uL Neutrophils (%) (Auto) 81 % Lymphocytes (%) (Auto) 12 % Monocytes (%) (Auto) 7 % Eosinophils (%) (Auto) 0 % Basophils (%) (Auto) 1 % Neutrophils # (Auto) 13.8 x10^3/uL Lymphocytes # (Auto) 2.0 x10^3/uL Monocytes # (Auto) 1.2 x10^3/uL Eosinophils # (Auto) 0.0 x10^3/uL Basophils # (Auto) 0.1 x10^3/uL Platelet Estimate Pending Sodium Level 144 mmol/L Potassium Level 3.7 mmol/L Chloride Level 105 mmol/L Carbon Dioxide Level 25 mmol/L Anion Gap 14 Blood Urea Nitrogen 24 mg/dL Creatinine 1.3 mg/dL Estimated GFR (Cockcroft-Gault) 76.5 BUN/Creatinine Ratio 18 Glucose Level 114 mg/dL Calcium Level 9.8 mg/dL Total Bilirubin 0.8 mg/dL Aspartate Amino Transf (AST/SGOT) 148 U/L Alanine Aminotransferase (ALT/SGPT) 53 U/L Alkaline Phosphatase 72 U/L Total Protein 8.3 g/dL Albumin 4.4 g/dL Albumin/Globulin Ratio 1.1 Lipase 135 U/L Current Medications Medications (Trade) Dose Ordered Sig/Emy Route PRN Reason Start Time Stop Time Status Last Admin Dose Admin Sodium Chloride 1,000 ml @ 1,000 mls/hr Q1H IV 01/09/20 07:22 01/09/20 08:21 DC 01/09/20 07:46 Ondansetron HCl (Zofran) 4 mg 1X ONCE IVP 01/09/20 07:30 01/09/20 07:37 DC 01/09/20 07:47 Dicyclomine HCl (Bentyl) 20 mg 1X ONCE IM 01/09/20 07:30 01/09/20 07:37 DC 01/09/20 07:47 Iohexol (Omnipaque 300 Mg/ml) 100 ml 1X ONCE IV 01/09/20 08:00 01/09/20 08:02 DC 01/09/20 08:25 Info (CONTRAST GIVEN -- Rx MONITORING) 1 each PRN DAILY PRN MC SEE COMMENTS 01/09/20 08:15 01/11/20 08:14 Vital Signs: Vital Signs Date Time Temp Pulse Resp B/P (MAP) Pulse Ox O2 Delivery O2 Flow Rate FiO2 01/09/20 07:14 98.4 87 16 119/75 (90) 100 Room Air 98.4 EKG: EKG: [] Radiology/Procedures: Radiology/Procedures: [][facility] [address] [place], [place] [id number] IMAGING REPORT Signed PATIENT: ALAYNA PEREZCCOUNT: [id number] : 1985 LOCATION: ER AGE: 34 SEX: M EXAM STATUS: REG ER ORD. PHYSICIAN: EMILY STARR MD REASON: abd pain, n/v, hx of colitis, pud PROCEDURE: CT ABD PELV W/ IV CONTRST ONLY EXAM: CT Abdomen and Pelvis with IV contrast INDICATION: Reason: abd pain, n/v, hx of colitis, pud / Spl. Instructions: omni 300 75ml / History: TECHNIQUE: Multi-detector row CT images were acquired from the lung bases through the abdomen and pelvis with the use of IV contrast. Sagittal and coronal images were acquired from the transaxial data. All CT scans performed at this facility utilize dose optimization techniques as appropriate to the exam, including the following: Automated exposure control and adjustment of the mA and/or KV according to patient size (this includes techniques or standardized protocols for targeted exams where dose is indication/reason for exam). IV CONTRAST: Administered ORAL CONTRAST: Not administered COMPARISON: Contrast-enhanced abdomen pelvis CT 07/09/2019 FINDINGS: LOWER CHEST: Unremarkable LIVER: Unremarkable BILIARY SYSTEM: Gallbladder is unremarkable. Bile ducts are not dilated. PANCREAS: Unremarkable SPLEEN: Unremarkable ADRENALS: Unremarkable KIDNEYS & URETERS: Unremarkable BLADDER: Unremarkable REPRODUCTIVE ORGANS: Unremarkable GASTROINTESTINAL: Stable mild thickening of the gastric antral wall. No perigastric soft tissue stranding. The small bowel is unremarkable. Large bowel shows colonic diverticulosis notably the sigmoid colon. There are no wall thickening or pericolonic soft tissue stranding to suggest active bowel inflammation. The appendix is normal. MESENTERY/PERITONEUM/RETROPERITONEUM: Unremarkable VASCULAR: Unremarkable LYMPH NODES: No adenopathy OSSEOUS & SOFT TISSUES: Unremarkable IMPRESSION: Similar findings of mild gastric antral wall thickening. Otherwise no acute findings in the abdomen or pelvis on contrast enhanced CT without oral contrast. Electronically signed by: Rudy Shahid MD (01/09/2020 8:33 AM) [id number] DICTATED and SIGNED BY: RUDY SHAHID MD DATE: 01/09/20 0833 Course & Med Decision Making: Course & Med Decision Making Pertinent Labs and Imaging studies reviewed. (See chart for details) [] 34-year-old male presents with abdominal pain. Patient has had several episodes like this in the past. Abdominal exam is soft and nonsurgical. Pat ient's work-up reveals a leukocytosis as well as gastritis on the CT. Upon reassessment at 8:47 AM patient's nausea is better and abdominal pain is only described as a discomfort. Patient is clinically stable on my reassessment. Do not think there is a surgical emergency at this time. Discussed with patient the CT findings and need for follow-up with Dr. Lacy, his gastroent erologist. Patient was instructed to continue with his PPI and Carafate and we will add some antinausea medicine as well as Levsin. Return precautions given. Viniciuson Disclaimer: Kristin Disclaimer: This electronic medical record was generated, in whole or in part, using a voice recognition dictation system. Departure Departure Impression: Primary Impression: Abdominal pain Additional Impression: Gastritis Disposition: 01 DC HOME SELF CARE/HOMELESS Condition: STABLE Referrals: ALLIE BEE MD (PCP) ED LACY MD 2-3 days Patient Instructions: Abdominal Pain, Gastritis, Adult Additional Instructions: EMERGENCY DEPARTMENT GENERAL DISCHARGE INSTRUCTIONS THANK YOU for coming to [facility] Emergency Department (ED) today and trusting us with your care. We trust that you had a positive experience in our Emergency Department. If you wish to speak to the department Management you can contact the sales department clerk at . YOUR FOLLOW UP INSTRUCTIONS ARE FOLLOWS: Do you have a private doctor? If you do not have a private doctor, please ask for a resource list of physicians or clinics that may be able to assist you with follow up care. The Emergency Physician has interpreted your x-rays. The X-ray specialist will also review them. If there is a change in the findings you will be notified in 48 hours when at all possible. A lab test or lab culture may have been done, your results will be reviewed and you will be notified if you need a change in treatment. ADDITIONAL INSTRUCTIONS AND INFORMATION Your care today has been supervised by a physician who is specially trained in emergency care. Many problems require more than one evaluation for a complete diagnosis and treatment. We recommend that you schedule your follow up appointment as recommended to ensure complete treatment of your illness or injury. If you are unable to obtain follow up care and continue to have a problem, or if your condition worsens we recommend that you return to the ED. We are not able to safely determine your condition over the phone nor are we able to give sound medical advice over the phone. For these safety reasons, if you call for medical advice we will ask you to come to the ED for further evaluation If you have any questions regarding these discharge instructions please call the ED at . SAFETY INFORMATION In the interest of safety, wellness, and injury prevention; we encourage you to wear your seatbelt, if you smoke; quit smoking, and we encourage your family to use pr otective helmet for bicycling and other sporting events that present an increased risk for head injury. IF YOUR SYMPTOMS WORSEN OR NEW SYMPTOMS DEVELOP, OR YOU HAVE CONCERNS ABOUT YOUR CONDITION; OR IF YOUR CONDITION WORSENS WHILE YOU ARE WAITING FOR YOUR FOLLOW UP APPOINTMENT; EITHER CONTACT YOUR PRIMARY CARE DOCTOR, THE PHYSICIAN WHOSE NAME AND NUMBER YOU WERE GIVEN, OR RETURN TO THE ED IMMEDIATELY. Scripts Hyoscyamine Sulfate (LEVSIN-SL) 0.125 Mg Tab.subl 0.125 MG SL Q6HRS PRN for ABDOMINAL PAIN, #30 TAB Prov: EMILY STARR MD 01/09/20 Ondansetron Hcl (ZOFRAN) 4 Mg Tablet 1 TAB PO Q6HRS for nausea, #15 TAB Prov: EMILY STARR MD 01/09/20 EMILY SATRR MD Jan 09, 2020 07:40
[2020-01-09 07:48] VITALS: BP 114/70
[2020-01-09] MEDS ORDERED: IOHEXOL 300 MG/ML 100ML VIAL. IV ONE (08:00)
[2020-01-09 08:01] LABS: BASO # 0.1 x10^3/uL (0.0-0.2); BASO % 1 % (0-3); EOS % 0 % (0-3); HEMATOCRIT 42.9 % (39.0-53.0); HEMOGLOBIN 14.7 g/dL (13.0-17.5); LYMPH % 12 % (24-48); MEAN CORPUSCULAR HEMOGLOBIN 33 pg (25-35); MEAN CORPUSCULAR HGB CONC 34 g/dL (31-37); MEAN CORPUSCULAR VOLUME 97 fL (79-100); MONO # 1.2 x10^3/uL (0.0-1.1); MONO % 7 % (0-9); NEUT # 13.8 x10^3/uL (1.8-7.7); NEUT % 81 % (31-73); PLATELET COUNT 370 x10^3/uL (140-400); RED BLOOD COUNT 4.43 x10^6/uL (4.30-5.70); RED CELL DISTRIBUTION WIDTH 13.3 % (11.5-14.5); WHITE BLOOD COUNT 17.1 x10^3/uL (4.0-11.0)
[2020-01-09 08:12] LABS: CALCIUM 9.8 mg/dL (8.5-10.1); CREATININE 1.3 mg/dL (0.7-1.3); GFR 76.5; POTASSIUM 3.7 mmol/L (3.5-5.1)
[2020-01-09] MEDS ORDERED: CONTRAST GIVEN. MC PRN (08:15)
[2020-01-09 08:18] LABS: ALBUMIN 4.4 g/dL (3.4-5.0); ALBUMIN/GLOBULIN RATIO 1.1 (1.0-1.7); TOTAL BILIRUBIN 0.8 mg/dL (0.2-1.0); TOTAL PROTEIN 8.3 g/dL (6.4-8.2)
--- NOTE | 2020-01-09 08:36 | RAD ---
EXAM: CT Abdomen and Pelvis with IV contrast INDICATION: Reason: abd pain, n/v, hx of colitis, pud / Spl. Instructions: omni 300 75ml / History: TECHNIQUE: Multi-detector row CT images were acquired from the lung bases through the abdomen and pelvis with the use of IV contrast. Sagittal and coronal images were acquired from the transaxial data. All CT scans performed at this facility utilize dose optimization techniques as appropriate to the exam, including the following: Automated exposure control and adjustment of the mA and/or KV according to patient size (this includes techniques or standardized protocols for targeted exams where dose is indication/reason for exam). IV CONTRAST: Administered ORAL CONTRAST: Not administered COMPARISON: Contrast-enhanced abdomen pelvis CT 07/09/2019 FINDINGS: LOWER CHEST: Unremarkable LIVER: Unremarkable BILIARY SYSTEM: Gallbladder is unremarkable. Bile ducts are not dilated. PANCREAS: Unremarkable SPLEEN: Unremarkable ADRENALS: Unremarkable KIDNEYS & URETERS: Unremarkable BLADDER: Unremarkable REPRODUCTIVE ORGANS: Unremarkable GASTROINTESTINAL: Stable mild thickening of the gastric antral wall. No perigastric soft tissue stranding. The small bowel is unremarkable. Large bowel shows colonic diverticulosis notably the sigmoid colon. There are no wall thickening or pericolonic soft tissue stranding to suggest active bowel inflammation. The appendix is normal. MESENTERY/PERITONEUM/RETROPERITONEUM: Unremarkable VASCULAR: Unremarkable LYMPH NODES: No adenopathy OSSEOUS & SOFT TISSUES: Unremarkable IMPRESSION: Similar findings of mild gastric antral wall thickening. Otherwise no acute findings in the abdomen or pelvis on contrast enhanced CT without oral contrast. Electronically signed by: Barbara Shahid MD (01/09/2020 8:33 AM) [id number]
[2020-01-09] MEDS ORDERED: ONDA4TAB7 PO (08:53)
[2020-01-09] MEDS ORDERED: HYOS0.1265 SL (08:53)
[2020-01-09 09:21] LABS: % BANDS 2 % (0-9); % LYMPHS 6 % (24-48); % MONOS 4 % (0-10); % SEGS 88 % (35-66); PLT ESTIMATE ADEQUATE (ADEQUATE)
== END 2020-01-09 09:22 | disposition home or self-care (01) ==
LOC: ER 07:04
DX: K29.70 Gastritis, unspecified, without bleeding (principal); R10.84 Generalized abdominal pain; R11.2 Nausea with vomiting, unspecified; R19.7 Diarrhea, unspecified; J45.909 Unspecified asthma, uncomplicated; K21.9 Gastro-esophageal reflux disease without esophagitis; F12.90 Cannabis use, unspecified, uncomplicated; Z88.8 Allergy status to other drugs, medicaments and biological substances
CPT/HCPCS: 36415; 74177; 80053; 83690; 85007; 85025; 96361; 96372; 96374; 99285; J0500; J2405; J7030; Q9967